=== PATIENT | male | born 1970 | race Caucasian/White ===

== ENCOUNTER 2017-03-06 01:35 | Observation (INO) | payer MEDICAID ==
[~2017-03-06] VITALS: Ht 188 cm; Wt 90.9 kg
--- NOTE | ~2017-03-06 | OP ---
PATIENT NAME: EDINSON FITCH MEDICAL RECORD: [id number] :74 LOCATION:[id number] ADMISSION DATE:03/06/17 SURGEON: MARLEEN FLETCHER MD DATE OF OPERATION: 03/06/2017 DATE OF OPERATION: 03/06/17 PREOPERATIVE DIAGNOSES: 1. Bleeding external/internal hemorrhoids. 2. Thrombosed external hemorrhoid. 3. Anemia of acute blood loss. 4. Tobacco dependent syndrome. POSTOPERATIVE DIAGNOSES: 1. Bleeding external/internal hemorrhoids. 2. Thrombosed external hemorrhoid. 3. Anemia of acute blood loss. 4. Tobacco dependent syndrome. PROCEDURE: Right lateral hemorrhoidectomy with anal exam under anesthesia. SURGEON: Marleen Fletcher MD REPORT OF PROCEDURE: An anoscope was inserted and a 360 degree inspection was performed. The patient had 4 columns of the enlarged hemorrhoids with the largest being in the right lateral segment of the hemorrhoid and extended from the 11 o'clock to the 7 o'clock position was a very pedunculated and swollen and very friable. The patient had an internal hemorrhoid on the left lateral region with no external component. He also had enlarged hemorrhoids anteriorly and posteriorly, more so on the right side, again with enlarged internal and external components. I placed a suture at the base of the largest right lateral hemorrhoid. This hemorrhoid was then excised using electrocautery out of the skin. Once the hemorrhoid was completely excised we treated any bleeding that was found with electrocautery and then oversewed the blood vessels using the 2-0 chromic, this chromic was run out of the rectum to the anoderm with good approximation of the tissue, at this point, I was fearful of taking out any more hemorrhoids just due to the large size, the wound was removed in fear of possible anal stenosis. At this point, we irrigated out the rectum and assured there was no sign of any active bleeding. A piece of Gelfoam with Americaine was then inserted into the anus. COMPLICATIONS: None. CONDITION: Stable. ANESTHESIA: General endotracheal. BLOOD LOSS: 50 mL TRANSINT:[id number] Voice Confirmation ID: [id number] DOCUMENT ID: [id number] OPERATIVE REPORT [id number] CONSTANTINEEDINSON Lorenzana MARLEEN FLETCHER MD CC: [id number] DICTATION DATE: 03/06/17 155 DRUG ENFORCEMENT AGENT: 03/07/17 0059 ADM IN [facility] [address] [place] [address]
[2017-03-06 02:36] LABS: BASOPHILS 0.3 % (0-2); EOSINOPHILS 1.2 % (0-7); HEMATOCRIT 37.9 % (42.0-54.0); HEMOGLOBIN 11.9 g/dL (13.5-17.5); IMMATURE GRANULOCYTES 0.2 % (0-5); LYMPHOCYTES 26.6 % (15-50); MCH 24.1 pg (26.0-34.0); MCHC 31.4 g/dL (31.0-37.0); MCV 76.7 fL (80.0-100.0); MEAN PLATELET VOLUME 9.4 fL (7.4-10.4); MONOCYTES 7.1 % (2-11); NEUTROPHILS 64.6 % (40-80); PLATELET COUNT 392 10x3/uL (130-400); RBC 4.94 10x6/uL (4.20-6.10); RDW 16.2 % (11.5-14.5); WBC 8.9 10x3/uL (4.8-10.8)
[2017-03-06 02:42] LABS: ALBUMIN 3.6 g/dL (3.4-5.0); ALKALINE PHOSPHATASE 77 U/L (46-116); ALT (SGPT) 35 U/L (10-68); BILIRUBIN - TOTAL 0.12 mg/dL (0.2-1.3); CALC OSMOLALITY 276 mosm/kg (275-300); CARBON DIOXIDE 26.5 mmol/L (21.0-32.0); CHLORIDE - SERUM 104 mmol/L (98-107); GLUCOSE 93 mg/dL (74-106); POTASSIUM - SERUM 4.3 mmol/L (3.5-5.1); PROTEIN - SERUM 7.5 g/dL (6.4-8.2); SODIUM 138 mmol/L (136-145); UREA NITROGEN 14 mg/dL (7-18); eGFR NON AFRICAN AMERICAN 86 mL/min (90-120)
[2017-03-06 03:14] LABS: APPEARANCE CLEAR (CLEAR); BILIRUBIN NEGATIVE (NEGATIVE); COLOR YELLOW (YELLOW); GLUCOSE NEGATIVE (NEGATIVE); KETONE NEGATIVE (NEGATIVE); LEUKOCYTE ESTERASE NEGATIVE (NEGATIVE); NITRITE NEGATIVE (NEGATIVE); PROTEIN NEGATIVE (NEGATIVE); UROBILINOGEN NORMAL (NORMAL)
[2017-03-06 03:16] LABS: INR 0.93 (0.85-1.17); PROTIME 12.3 SECONDS (11.6-15.0)
[2017-03-06 07:37] LABS: BASOPHILS 0.1 % (0-2); EOSINOPHILS 2.1 % (0-7); HEMATOCRIT 35.7 % (42.0-54.0); HEMOGLOBIN 11.3 g/dL (13.5-17.5); IMMATURE GRANULOCYTES 0.3 % (0-5); LYMPHOCYTES 29.7 % (15-50); MCH 24.2 pg (26.0-34.0); MCHC 31.7 g/dL (31.0-37.0); MCV 76.6 fL (80.0-100.0); MEAN PLATELET VOLUME 9.2 fL (7.4-10.4); MONOCYTES 7.8 % (2-11); PLATELET COUNT 328 10x3/uL (130-400); RBC 4.66 10x6/uL (4.20-6.10); RDW 16.4 % (11.5-14.5); WBC 6.8 10x3/uL (4.8-10.8)
[2017-03-06 08:00] VITALS: Ht 188 cm; Wt 90.9 kg
--- NOTE | 2017-03-06 08:00 | NUR ---
PATIENT'S ASSESSMENT COMPLETED AT THIS TIME. PATIENT TURNED TO HIS LATERAL SIDE TO ALLOW ME TO ASSESS HIS HEMORROIDS. STRONG FOUL ODOR PRESENT. USING A WHITE WET WIPE GENTLY CLEANED ANUS, THERE IS BRIGHT RED BLOOD PRESENT AND YELLOWISH COLORED MUCUS PRESENT. CLEANED IT ALL OFF. THE HEMORROIDS ARE PROTRUDING.
--- NOTE | 2017-03-06 08:15 | NUR ---
PT ASSESSMENT COMPLETE AWAKE AND ALERT ORINETD X 3 HAS MODERATE AMOUNT OF PAIN NOTED WILL OBTAIN ORDER FOR PAIN MEDS AND TREAT. PT HAS PROTRUDING HEMMERHOIDS NOTED TO ANUS. NOTED TO HAVE FOUL ODOR.
[2017-03-06 08:36] VITALS: BP 120/72
[2017-03-06 12:17] VITALS: BP 134/84
--- NOTE | 2017-03-06 16:30 | NUR ---
PT RETURNED FROM OR VIA BED VITAL SIGNS WNL. FAMILY AT SIDE PT COMPLAINT OF PAIN TO RIGHT SIDE OF ANUS PACKING NOTED
[2017-03-06 16:42] VITALS: BP 128/76
--- NOTE | 2017-03-06 18:13 | NUR ---
PT AWAKE AND EATING SMALL AMOUNT OF SUPPER MEAL DRINKING DR BOWER. MOTHER AT BEDSIDE.
[2017-03-06 20:00] VITALS: BP 123/68
--- NOTE | 2017-03-06 20:45 | NUR ---
PATIENT RESTING IN BED WITH NO VISIBLE SIGNS OF DISTRESS AND DENIES NEEDS AT THIS TIME. BED IN LOWEST POSITION AND CALL LIGHT WITHIN REACH. ENCOURAGED THE PATIENT TO CALL IF HE HAS NEEDS.
[2017-03-06 23:43] VITALS: BP 110/57
[2017-03-07 04:00] VITALS: BP 138/68
--- NOTE | 2017-03-07 06:17 | NUR ---
PATIENT REFUSED [address] LAST NIGHT.
[2017-03-07 07:08] LABS: BASOPHILS 0.1 % (0-2); EOSINOPHILS 1.5 % (0-7); HEMATOCRIT 35.4 % (42.0-54.0); HEMOGLOBIN 10.8 g/dL (13.5-17.5); IMMATURE GRANULOCYTES 0.2 % (0-5); LYMPHOCYTES 11.8 % (15-50); MCH 23.9 pg (26.0-34.0); MCHC 30.5 g/dL (31.0-37.0); MCV 78.5 fL (80.0-100.0); MEAN PLATELET VOLUME 9.8 fL (7.4-10.4); MONOCYTES 8.1 % (2-11); NEUTROPHILS 78.3 % (40-80); PLATELET COUNT 321 10x3/uL (130-400); RBC 4.51 10x6/uL (4.20-6.10); RDW 16.1 % (11.5-14.5)
[2017-03-07 07:13] LABS: WBC 9.9 10x3/uL (4.8-10.8)
[2017-03-07 07:25] LABS: ALKALINE PHOSPHATASE 74 U/L (46-116); ALT (SGPT) 37 U/L (10-68); BILIRUBIN - TOTAL 0.46 mg/dL (0.2-1.3); CALC OSMOLALITY 276 mosm/kg (275-300); CALCIUM 8.6 mg/dL (8.5-10.1); CARBON DIOXIDE 31.5 mmol/L (21.0-32.0); CHLORIDE - SERUM 103 mmol/L (98-107); CREATININE - SERUM 1.1 mg/dL (0.6-1.3); GLUCOSE 109 mg/dL (74-106); POTASSIUM - SERUM 4.2 mmol/L (3.5-5.1); PROTEIN - SERUM 6.3 g/dL (6.4-8.2); SODIUM 138 mmol/L (136-145); UREA NITROGEN 13 mg/dL (7-18); eGFR NON AFRICAN AMERICAN 77 mL/min (90-120)
--- NOTE | 2017-03-07 08:00 | NUR ---
PT AOX4 RESP EVEN AND NONLABORED PT DENIES NEEDS AT THIS TIME IV TO RIGHT FOREARM PATENT AND INTACT SRX2 BED AT LOWEST POSITION CALL LIGHT WITHIN REACH WILL CONTINUE TO MONITOR
[2017-03-07 08:16] VITALS: BP 121/61
[2017-03-07 11:49] VITALS: BP 136/76
[2017-03-07] MEDS ORDERED: COLACE100 MG PO (12:43)
[2017-03-07] MEDS ORDERED: MIRALAX17 GM PO (12:43)
[2017-03-07] MEDS ORDERED: ANUSOL SUPP1 SUPP RC (12:43)
[2017-03-07] MEDS ORDERED: PERCOCET 10/3251 TA1 PO (13:35)
--- NOTE | 2017-03-07 14:49 | NUR ---
IV DISCONTINUED WITH CATHETER INTACT AT THIS TIME PT GIVEN DISCHARGE INSTRUCTIONS AND 3 RX'S AT THIS TIME. PT TAKEN VIA WHEELCHAIR VIA PRIVATE VEHICLE FROM THE FACILITY AT THIS TIME
== END 2017-03-07 14:51 | disposition home or self-care (01) ==
LOC: D.ER 01:35 → OBSVTIME 05:42 → D.MS 05:42
PROVIDERS: Emergency Medicine; ADMIT Family Medicine
DX: K64.8 Other hemorrhoids (principal); D62 Acute posthemorrhagic anemia; K64.5 Perianal venous thrombosis; F10.20 Alcohol dependence, uncomplicated; F12.90 Cannabis use, unspecified, uncomplicated; F15.90 Other stimulant use, unspecified, uncomplicated; F17.200 Nicotine dependence, unspecified, uncomplicated

== ENCOUNTER 2017-03-14 19:31 | Emergency (ER) | payer MEDICAID ==
[2017-03-06 08:00] VITALS: BMI 25.7
[~2017-03-14 19:31] MED LIST: ANUSOL SUPP1 SUPP RC; COLACE100 MG PO; MIRALAX17 GM PO; PERCOCET 10/3251 TA1 PO
== END 2017-03-14 21:28 | disposition home or self-care (01) ==
LOC: D.ER 19:31
DX: K64.4 Residual hemorrhoidal skin tags (principal); F17.200 Nicotine dependence, unspecified, uncomplicated

== ENCOUNTER 2017-09-18 10:28 | Inpatient (IN) | payer MEDICAID ==
[~2017-09-18] VITALS: Ht 188 cm; Wt 90.9 kg
[2017-09-18 10:58] LABS: BASOPHILS 0.1 % (0-2); EOSINOPHILS 0.3 % (0-7); HEMATOCRIT 42.5 % (42.0-54.0); HEMOGLOBIN 14.2 g/dL (13.5-17.5); IMMATURE GRANULOCYTES 0.1 % (0-5); LYMPHOCYTES 14.2 % (15-50); MCH 28.3 pg (26.0-34.0); MCHC 33.4 g/dL (31.0-37.0); MCV 84.7 fL (80.0-100.0); MEAN PLATELET VOLUME 9.2 fL (7.4-10.4); MONOCYTES 7.7 % (2-11); NEUTROPHILS 77.6 % (40-80); RBC 5.02 10x6/uL (4.20-6.10); RDW 14.1 % (11.5-14.5); WBC 6.8 10x3/uL (4.8-10.8)
[2017-09-18 11:05] LABS: PLATELET COUNT 230 10x3/uL (130-400)
[2017-09-18 11:19] LABS: ALBUMIN 3.5 g/dL (3.4-5.0); ANION GAP 8.2 mmol/L (8-16); BILIRUBIN - TOTAL 1.6 mg/dL (0.2-1.3); CALCIUM 10.3 mg/dL (8.5-10.1); CARBON DIOXIDE 33.4 mmol/L (21.0-32.0); CREATININE - SERUM 1.2 mg/dL (0.6-1.3); POTASSIUM - SERUM 3.6 mmol/L (3.5-5.1); PROTEIN - SERUM 6.9 g/dL (6.4-8.2)
[2017-09-18 12:15] LABS: CKMB 4.2 U/L (0.0-3.6); CREATINE KINASE 239 UL (21-232); TROPONIN-I < 0.017 ng/mL (0.000-0.060)
[2017-09-18 14:17] LABS: AMORPHOUS SEDIMENT >1+ /lpf (NONE SEEN); APPEARANCE CLOUDY (CLEAR); BACTERIA FEW /hpf (NONE SEEN); BILIRUBIN NEGATIVE (NEGATIVE); COLOR YELLOW (YELLOW); EPITHELIAL CELLS RARE /hpf (0-5); GLUCOSE 100 mg/dL (NEGATIVE); KETONE SMALL mg/dL (NEGATIVE); MUCUS <1+ /lpf (NONE SEEN); NITRITE NEGATIVE (NEGATIVE); PROTEIN 1+ mg/dL (NEGATIVE); SPECIFIC GRAVITY 1.005 (1.005-1.020)
--- NOTE | 2017-09-18 16:30 | NUR ---
PT AOX4 RESP EVEN AND NONLABORED PT DENIES NEEDS AT THIS TIME IV TO LEFT UPPER ARM PATENT AND INTACT AT THIS TIME BED AT LOWEST SETTING CALL LIGHT WITHIN REACH WILL CONTINUE TO MONITOR
[2017-09-18] MEDS ORDERED: ADVIL200 MG PO (16:51)
[2017-09-18 16:52] VITALS: BP 124/78; BMI 25.7
[2017-09-18 16:56] VITALS: BP 124/78
--- NOTE | 2017-09-18 21:45 | NUR ---
PATIENT BACK FROM PIPIDA SCAN.
--- NOTE | 2017-09-18 22:00 | NUR ---
PATIENT WENT OUTSIDE TO WALK HIS FRIEND OUT.
[2017-09-18 22:08] VITALS: Ht 188 cm; Wt 90.9 kg
--- NOTE | 2017-09-18 22:25 | NUR ---
PATIENT BACK IN ROOM. ELECTRICIAN POWERHOUSE ASSISTING PATIENT GETTING READY TO GET IN THE SHOWER.
[2017-09-19] VITALS: BP 129/70
[2017-09-19 05:39] LABS: APTT 32.6 SECONDS (22.8-39.4); HEMATOCRIT 42.6 % (42.0-54.0); HEMOGLOBIN 14.3 g/dL (13.5-17.5); INR 1.06 (0.85-1.17); LYMPHOCYTES 25.4 % (15-50); MCHC 33.6 g/dL (31.0-37.0); MCV 83.4 fL (80.0-100.0); MEAN PLATELET VOLUME 9.3 fL (7.4-10.4); NEUTROPHILS 60.2 % (40-80); PLATELET COUNT 219 10x3/uL (130-400); PROTIME 13.4 SECONDS (11.6-15.0); RBC 5.11 10x6/uL (4.20-6.10); RDW 14.3 % (11.5-14.5)
[2017-09-19 05:40] LABS: WBC 4.9 10x3/uL (4.8-10.8)
[2017-09-19 05:42] VITALS: BP 112/73
[2017-09-19 05:53] LABS: ALBUMIN 2.8 g/dL (3.4-5.0); ALKALINE PHOSPHATASE 203 U/L (46-116); BILIRUBIN - DIRECT 2.38 mg/dL (0.00-0.30); BILIRUBIN - INDIRECT 0.91 mg/dL (0.00-1.00); BILIRUBIN - TOTAL 3.29 mg/dL (0.2-1.3); CALCIUM 8.3 mg/dL (8.5-10.1); CARBON DIOXIDE 25.6 mmol/L (21.0-32.0); CHLORIDE - SERUM 105 mmol/L (98-107); GLUCOSE 95 mg/dL (74-106); POTASSIUM - SERUM 3.7 mmol/L (3.5-5.1); PROTEIN - SERUM 6.1 g/dL (6.4-8.2); SODIUM 139 mmol/L (136-145); eGFR NON AFRICAN AMERICAN 86 mL/min (90-120)
[2017-09-19 05:54] LABS: ALT (SGPT) 232 U/L (10-68); CALC OSMOLALITY 275 mosm/kg (275-300); UREA NITROGEN 7 mg/dL (7-18)
--- NOTE | 2017-09-19 07:30 | NUR ---
ASSESSMENT PER FLOW SHEET.PT WITHOUT DISTRESS.FAMILY AT BEDSIDE.NPO
--- NOTE | 2017-09-19 07:44 | NUR ---
TO OR VIA BED
--- NOTE | 2017-09-19 10:07 | NUR ---
CONSULTED ANESTHESIA REGARDING DECREASED HEART RATE. ELIU MARRERO CRNA AT BEDSIDE. BP STABLE AT 112/72. NO FURTHER ORDERS GIVEN. WILL CONTINUE TO MONITOR.
[2017-09-19 10:22] VITALS: BP 108/63
--- NOTE | 2017-09-19 10:30 | NUR ---
BACK FROM PACU.AWAKENS INT.LAP SITES X4 CDI.FAMILY AT BEDSIDE.CALL LIGHT PLACED IN REACH
--- NOTE | 2017-09-19 12:15 | NUR ---
PAIN MEDS ORDERED PER MAR FOR PAIN,SEE MAR
--- NOTE | 2017-09-19 13:23 | NUR ---
STILL SLEEPING WITHOUT SIGNS OF PAIN
[2017-09-19 14:17] VITALS: BP 146/92
--- NOTE | 2017-09-19 14:22 | NUR ---
AWAKE AND ALERT. DENIES PAIN.WANTS FOOD
[2017-09-19 21:28] VITALS: BP 136/85
[2017-09-20 01:06] VITALS: BP 163/79
[2017-09-20 05:21] LABS: BASOPHILS 0.1 % (0-2); EOSINOPHILS 0.5 % (0-7); HEMATOCRIT 39.3 % (42.0-54.0); IMMATURE GRANULOCYTES 0.1 % (0-5); MCHC 33.1 g/dL (31.0-37.0); MCV 84.7 fL (80.0-100.0); MEAN PLATELET VOLUME 9.9 fL (7.4-10.4); MONOCYTES 9.8 % (2-11); NEUTROPHILS 77.5 % (40-80); PLATELET COUNT 241 10x3/uL (130-400); RBC 4.64 10x6/uL (4.20-6.10); RDW 14.8 % (11.5-14.5)
[2017-09-20 05:31] LABS: WBC 7.7 10x3/uL (4.8-10.8)
[2017-09-20 05:35] VITALS: BP 131/83
[2017-09-20 06:27] LABS: ALBUMIN 2.3 g/dL (3.4-5.0); ALKALINE PHOSPHATASE 220 U/L (46-116); ALT (SGPT) 177 U/L (10-68); BILIRUBIN - DIRECT 3.31 mg/dL (0.00-0.30); CALC OSMOLALITY 271 mosm/kg (275-300); CALCIUM 8.2 mg/dL (8.5-10.1); CHLORIDE - SERUM 103 mmol/L (98-107); GLUCOSE 101 mg/dL (74-106); POTASSIUM - SERUM 3.4 mmol/L (3.5-5.1); PROTEIN - SERUM 5.5 g/dL (6.4-8.2); SODIUM 137 mmol/L (136-145); UREA NITROGEN 7 mg/dL (7-18); eGFR NON AFRICAN AMERICAN 86 mL/min (90-120)
[2017-09-20 09:39] VITALS: BP 126/72
--- NOTE | 2017-09-20 10:00 | NUR ---
COMPLAINING OF ABDOMINAL PAIN. BEAM BUILDER HELPER DILAUDID IN USE FOR PAIN CONTROL. RESTING IN BED ON RIGHT SIDE.
--- NOTE | 2017-09-20 11:18 | NUR ---
REC'D SLEEPING. AROUSED TO VOICE. IS VERY LETHARGIC. COMPLAINS OF PAIN WHEN AWAKE. FALLS BACK TO SLEEP QUICKLY. IS USING HIS INSEAM LEVELER. PLACE ETCO2 MONITOR ON. IS WANTING TO LEAVE BC WE ARE NOT DOING ANYTHING FOR HIS PAIN. EXPLAINED TO HIM THE RISKS OF LEAVING AMA, VERBALIZED UNDERSTANDING. INSTRUCTED TO CALL IF NEEDED ANYTHING, VERBALIZED UNDERSTANDING. BED LOW, LOCKED, CALL LIGHT IN REACH.
--- NOTE | 2017-09-20 15:42 | NUR ---
WOKE UP STATED "IM FEELING BETTER" WENT BACK TO SLEEP SHORTLY AFTER. WILL CONT TO MONITOR.
[2017-09-20 16:07] VITALS: BP 158/98
--- NOTE | 2017-09-20 18:32 | NUR ---
DR. HORTON CAME BY AT 1830 TO SPEAK WITH FAMILY AND FAMILY WAS GONE AND PATIENT WAS ASLEEP.
[2017-09-20 20:56] VITALS: BP 154/91
--- NOTE | 2017-09-21 04:45 | NUR ---
PT RESTING QUIETLY, EYES CLOSED. RESP EVEN, UNLABORED. NO DISTRESS NOTED. CONTINUE POLICE MAGISTRATE'S PLAN OF CARE.
[2017-09-21 05:22] VITALS: BP 127/75
[2017-09-21 06:40] LABS: ALBUMIN 2.1 g/dL (3.4-5.0); ALKALINE PHOSPHATASE 233 U/L (46-116); CALC OSMOLALITY 265 mosm/kg (275-300); CALCIUM 8.3 mg/dL (8.5-10.1); CARBON DIOXIDE 26.2 mmol/L (21.0-32.0); CHLORIDE - SERUM 101 mmol/L (98-107); CREATININE - SERUM 0.9 mg/dL (0.6-1.3); GLUCOSE 90 mg/dL (74-106); POTASSIUM - SERUM 3.6 mmol/L (3.5-5.1); PROTEIN - SERUM 5.7 g/dL (6.4-8.2); SODIUM 134 mmol/L (136-145); UREA NITROGEN 6 mg/dL (7-18); eGFR NON AFRICAN AMERICAN > 90 mL/min (90-120)
[2017-09-21 06:41] LABS: ALT (SGPT) 121 U/L (10-68)
--- NOTE | 2017-09-21 07:50 | NUR ---
REC'D LYING IN BED. ALERT AND ORIENTED X4. REPORTED PAIN BEING INTENSE IN THE RIGHT SIDE OF ABDOMEN. IS TENDER TO TOUCH. NO SWELLING NOTED, NO REDNESS. WILL CONT TO MONITOR. FAMILY IS AT BEDSIDE. INSTRUCTED TO CALL IF NEEDED ANYTHING, VERBALIZED UNDERSTANDING. BED LOW, LOCKED, CALL LIGHT IN REACH.
[2017-09-21 08:30] VITALS: BP 128/80
--- NOTE | 2017-09-21 11:04 | NUR ---
WAS VERY UPSET THAT HIS PAIN WAS NOT GETTING RELIEVED BY THE BELLY DANCER. STARTED TO YELL AND CURSE. WENT IN TO SEE IF I COULD CALM HIM DOWN AND HE STATED "CALL AND AMBULANCE SO I CAN GO TO [place]" I EXPLAINED TO HIM THAT WE DONT CALL AMBLULANCES TO TRANSFER IF A PATIENT WANTS TO LEAVE AGAISNT MEDICAL ADVICE, VERBALIZED UNDERSTANDING. I CALLED DR. HORTON AND TOLD HIM THE SITUATION AND HE WANTED TO SPEAK WITH MR. NEVES, [facility] SALES REPRESENTATIVE TRANSFERRED DR. HORTON TO HIS ROOM. WAS IN THE ROOM DR. HORTON SPOKE WITH MR. NEVES AND AND THE END OF THE CONVERSATION MR. NEVES STATED "FUCK HIM, I WANT HIS NAME, AND HUNG UP THE PHONE. MOTHER WAS IN THE ROOM SLAMMING THINGS AROUND, SLAMMING THE DOORS. [facility] SALES REPRESENTATIVE ANUPAM UP AMA PAPERWORK PER MR. BARDALES REFQUEST. I EDUCATED ONE LAST TIME ABOUT WHAT LEAVING MEANT FOR HIS HEALTH AND THAT INSURANCE WILL NOT COVER THE COSTS, HE VERBALIZED HIS UNDERSTANDING AND STILL WANTED TO LEAVE. HE SIGNED THE PAPERS WHILE STILL CUSSING. I DC'D THE IV FROM THE LEFT AC, CATHETER WAS STILL INTACT, PLACED A BAND-AID OVER. MOTHER CALLED MR. BARDALES GIRLFRIEND TO COME PICK THEM UP. SECERITY WAS CALLED TO THE FLOOR ONCE ALL OF THE COMMOTION STARTED. SECURITY STAYED ON THE FLOOR UNTIL HE ESCORTED THEM OUT, BOTH MOTHER AND MR. NEVES BY WHEELCHAIR. DR. HORTON WAS NOTIFIED OF HIS AMA, [facility] MARIN RN
[2017-09-23 07:28] LABS: HEPATITIS C ANTIBODY <0.1 (0.0-0.9)
--- NOTE | 2017-10-09 08:23 | DS ---
PATIENT:EDINSON FITCH :74 MEDICAL RECORD: [id number] DISCHARGE SUMMARY ADMISSION DATE: 09/18/17 DISCHARGE DATE: 09/21/17 DATE OF ADMISSION: 09/18/2017 DATE OF DISCHARGE: 09/21/2017 ADMITTING PHYSICIAN: Ale Ferrari MD ADMITTING DIAGNOSIS: Cholecystitis. HOSPITAL COURSE: The patient was admitted to the hospital unit for treatment, IV fluid resuscitation, IV antibiotics, and a HIDA scan was performed. The patient was taken to the operating room for a laparoscopic cholecystectomy with cholangiogram, which showed a possible filling defect postoperative day. At this time, the gastroenterology was consulted and scheduled the patient for ERCP. Over the weekend, the patient left the hospital against medical advice, which is well documented in the daily progress notes. DISCHARGE CONDITION: Not stable. DISCHARGE DIET: As tolerated. DISCHARGE FOLLOWUP: With Dr. Ferrari in 5-7 days. DISCHARGE MEDICATIONS: Please see electronic medical record for a full list of discharge medications. TRANSINT:[id number] Voice Confirmation ID: [id number] DOCUMENT ID: [id number] ALE FERRARI MD at 0823 CC: [id number] DICTATION DATE: 10/08/17 1553 GAS OPERATION MANAGER: 10/09/17 0712 DIS IN 09/21/17 [address] [id number] [place] [address]
== END 2017-09-21 11:00 | disposition left against medical advice (07) | DRG 419 ==
LOC: D.ER 10:28 → D.MS 14:58 → OBSVTIME 14:58 → D.MS 14:58
PROVIDERS: Emergency Medicine; Internal Medicine Gastroenterology; ADMIT Surgery
PROC: BF101ZZ Fluoroscopy of Bile Ducts using Low Osmolar Contrast (ICD-10-PCS; 2017-09-19)
PROC: 0FT44ZZ Resection of Gallbladder, Percutaneous Endoscopic Approach (ICD-10-PCS; principal; 2017-09-19 12:00)
DX: K81.9 Cholecystitis, unspecified (principal); R74.0 Nonspecific elevation of levels of transaminase and lactic acid dehydrogenase [LDH]; F10.20 Alcohol dependence, uncomplicated; F15.10 Other stimulant abuse, uncomplicated